=== PATIENT | male | born 1995 | race Caucasian/White ===

== ENCOUNTER 2020-03-03 12:04 | Emergency (ER) | payer BC, OTHER ==
[~2020-03-03] VITALS: Ht 175.3 cm; Wt 81.6 kg
[~2020-03-03 12:04] MED LIST: advil; zantac
[2020-03-03 12:09] VITALS: BP 123/47
[2020-03-03] MEDS ORDERED: ONDANSETRON 4 MG/2 ML VIAL IVP ONE (12:20)
[2020-03-03] MEDS ORDERED: LOPERAMIDE 2 MG CAP PO ONE (12:20)
[2020-03-03] MEDS ORDERED: ALUMINUM HYD/MAG/SIMETHICONE 30 ML, DICYCLOMINE HCL LIQUID 20 MG, LIDOCAINE VISCOUS 2% ... PO ONE ×6 (12:20→14:20)
[2020-03-03] MEDS ORDERED: NACL 0.9% 1,000 ML IV SCH (12:20)
[2020-03-03 12:41] LABS: BASOPHILS % (AUTO) 0.2 % (0.0-2.0); EOSINOPHILS % (AUTO) 0.2 % (0.0-4.0); LYMPHOCYTES % (AUTO) 4.2 % (20.5-51.1); MEAN CORPUSCULAR HEMOGLOBIN 29 pg (27-31); MEAN CORPUSCULAR HGB CONC 34 g/dL (33-37); MEAN CORPUSCULAR VOLUME 85.7 fL (80-94); MONOCYTES # (AUTO) 1.7 K/uL (0.8-1.0); MONOCYTES % (AUTO) 7.1 % (1.7-9.3); NEUTROPHILS # (AUTO) 21.3 K/uL (1.8-7.7); NEUTROPHILS % (AUTO) 88.3 % (42.2-75.2); PLATELET COUNT (AUTO) 281 K/uL (140-450); RED BLOOD CELL COUNT(AUTO) 5.83 MIL/uL (4.20-6.10); RED CELL DISTRIBUTION WIDTH 12.9 % (11.6-13.7); WHITE BLOOD COUNT (AUTO) 24.1 K/uL (4.8-10.8)
[2020-03-03 12:49] LABS: ALBUMIN 4.9 g/dL (3.4-5.0); ANION GAP 23.3 (8-16); CARBON DIOXIDE 19.6 mmol/L (21-32); CREATININE 1.4 mg/dL (0.6-1.3); POTASSIUM 3.9 mmol/L (3.5-5.1)
[2020-03-03] MEDS ORDERED: LORazepam 2 MG/ML VIAL IVP ONE (13:25)
[2020-03-03] MEDS ORDERED: NACL 0.9% 1,000 ML IV ONE (13:25)
[2020-03-03] MEDS ORDERED: PROCHLORPERAZINE 10 MG/2 ML VIAL IVP ONE (13:25)
[2020-03-03] MEDS ORDERED: PROCHLORPERAZINE 10 MG/2 ML VIAL ONE (13:26)
[2020-03-03 13:31] LABS: TOTAL BILIRUBIN 0.7 mg/dL (0.0-1.0)
[2020-03-03] MEDS ORDERED: ALUMINUM HYD/MAG/SIMETHICONE 30 ML UDC ONE (14:23)
[2020-03-03] MEDS ORDERED: LIDOCAINE VISCOUS 2% 20 ML UDC ONE (14:23)
[2020-03-03] MEDS ORDERED: DICYCLOMINE HCL LIQUID 10 MG/5 ML UDC ONE (14:24)
[2020-03-03] MEDS ORDERED: cefTRIAXone 1,000 MG VIAL ONE (15:18)
[2020-03-03 15:38] VITALS: BP 110/60
== END 2020-03-03 15:38 | disposition home or self-care (01) ==
LOC: MED 12:04
DX: R11.2 Nausea with vomiting, unspecified (principal); D72.829 Elevated white blood cell count, unspecified; N28.9 Disorder of kidney and ureter, unspecified; Z20.828 Contact with and (suspected) exposure to other viral communicable diseases
CPT/HCPCS: 36415; 76705; 80053; 81002; 83690; 85025; 87040; 96361; 96365; 96375; 99284; J0696; J0780; J2060; J2405; J7060; U0003